=== PATIENT | female | born 1995 | race African-American/Black ===

== ENCOUNTER 2017-11-02 15:46 | Observation (INO) | payer SELFPAY ==
[~2017-11-02] VITALS: Ht 162.6 cm; Wt 60.8 kg
[~2017-11-02 15:46] MED LIST: ACET-1079 PO; PREN-96 PO
[2017-11-02 17:08] LABS: Basophils # (auto) 0 uL; Eosinophils # (auto) 0.2 uL; Monocytes # (auto) 0.6 uL; Platelet Count (auto) 264 10^3/uL (140-450)
[2017-11-02 17:10] LABS: Basophils % (auto) 0.4 % (0.0-2.0); Eosinophils % (auto) 3.1 % (0.0-7.0); Hematocrit 37.1 % (36.0-46.0); Hemoglobin 11.8 g/dL (12.2-16.2); Lymphocytes # (auto) 1.3 uL; Lymphocytes % (auto) 22.1 % (10.0-50.0); Mean Corpuscular Hemoglobin 24.1 pg (28.0-32.0); Mean Corpuscular Hgb Conc. 31.9 g/dL (32.0-36.0); Mean Corpuscular Volume 75.5 fL (80.0-100.0); Monocytes % (auto) 10.2 % (0.0-12.0); Neutrophils # (auto) 3.9 uL; Neutrophils % (auto) 64.2 % (37.0-80.0); Nucleated Red Blood Cells % 0.2 %; Red Blood Cells 4.91 10^6/uL (4.0-5.20); Red Cell Distribution Width 17.7 % (11.8-14.3); White Blood Cell 6.1 10^3/uL (4.4-10.8)
[2017-11-02 17:14] LABS: Urine Bacteria NONE SEEN /hpf (None Seen); Urine Blood 3+ /uL (Negative); Urine Mucus FEW (None Seen); Urine WBC 21 /hpf (0 - 5)
[2017-11-02 17:21] LABS: Albumin 3.5 g/dL (3.4-5.0); BUN/Creatinine Ratio 11.1; Calcium 8.1 mg/dL (8.5-10.1); Potassium 4.3 mmol/L (3.5-5.1)
[2017-11-02 17:23] LABS: Bilirubin, Total 0.5 mg/dL (0.2-1.0); Total Protein 8.5 g/dL (6.4-8.2)
[2017-11-02] MEDS ORDERED: HYDROcodone-ACET 10/325MG TAB PO ONE (18:45)
[2017-11-02 19:18] VITALS: BP 114/76
== END 2017-11-02 19:45 | disposition home or self-care (01) | DRG 605 ==
LOC: EDBD 15:46 → ER 15:46 → EDUNIT# 15:46 → OVERFLOW 15:47 → ER 19:44
PROVIDERS: ADMIT Emergency Medicine; ATTEND Emergency Medicine
DX: S31.114A Laceration without foreign body of abdominal wall, left lower quadrant without penetration into peritoneal cavity, initial encounter (principal); S71.111A Laceration without foreign body, right thigh, initial encounter; S81.811A Laceration without foreign body, right lower leg, initial encounter; V49.9XXA Car occupant (driver) (passenger) injured in unspecified traffic accident, initial encounter; Y92.410 Unspecified street and highway as the place of occurrence of the external cause; Y99.9 Unspecified external cause status; Y93.89 Activity, other specified
CPT/HCPCS: 36415; 74176; 80053; 81001; 81025; 84702; 85025; 99285; G0378

== ENCOUNTER → 2019-07-30 | Emergency (ER) | payer MEDICAID ==
[~2019-07-30] VITALS: Ht 165.1 cm; Wt 69.9 kg
[2019-07-30 14:03] VITALS: BP 113/68
== END | disposition home or self-care (01) ==
LOC: ER 13:00
DX: Z01.419 Encounter for gynecological examination (general) (routine) without abnormal findings (principal)

== ENCOUNTER 2021-02-11 12:25 | Emergency (ER) | payer MEDICAID ==
[~2021-02-11] VITALS: Ht 165.1 cm; Wt 74.4 kg
[2021-02-11 12:26] VITALS: BP 96/50
== END 2021-02-11 13:52 | disposition left against medical advice (07) ==
LOC: ER 12:25
DX: O21.8 Other vomiting complicating pregnancy (principal); R05.9 Cough, unspecified; Z3A.01 Less than 8 weeks gestation of pregnancy; Z53.21 Procedure and treatment not carried out due to patient leaving prior to being seen by health care provider

== ENCOUNTER 2023-11-13 11:41 | Inpatient (IN) | payer MEDICAID ==
[~2023-11-13] VITALS: Ht 165.1 cm; Wt 81.6 kg
[2023-11-13 12:30] LABS: Fern Testing Negative; Vaginal Trichomonas Not Present
[2023-11-13 12:31] LABS: Vaginal Bacteria Few; Vaginal Clue Cells None Seen; Vaginal Epithelial Cells Moderate
[2023-11-13] MEDS ORDERED: LIDOCAINE 2%HCL (LOCAL ANESTH.) INJ 20ML MDV IJ PRN (13:00)
[2023-11-13 13:41] LABS: Urine Bacteria None Seen /hpf (None Seen)
[2023-11-13 13:52] LABS: Basophils # (auto) 0 10 ^3/uL (0-0.2); Eosinophils # (auto) 0.1 10 ^3/uL (0-0.8); Lymphocytes # (auto) 1.4 10 ^3/uL (0.4-5.4); Red Cell Distribution Width 18.7 % (11.8-14.3)
[2023-11-13 13:54] LABS: Basophils % (auto) 0.3 % (0.0-2.0); Eosinophils % (auto) 0.8 % (0.0-7.0); Hematocrit 33.9 % (36.0-46.0); Lymphocytes % (auto) 16.9 % (10.0-50.0); Mean Corpuscular Hemoglobin 24.4 pg (28.0-32.0); Mean Corpuscular Hgb Conc. 32.5 g/dL (32.0-36.0); Monocytes # (auto) 0.5 10 ^3/uL (0-1.3); Monocytes % (auto) 6.4 % (0.0-12.0); Neutrophils # (auto) 6.2 10 ^3/uL (1.6-8.6); Neutrophils % (auto) 75.6 % (37.0-80.0); Nucleated Red Blood Cells % 0.1 %; Platelet Count (auto) 229 10^3/uL (140-450); Red Blood Cells 4.53 10^6/uL (4.0-5.20); White Blood Cell 8.2 10^3/uL (4.4-10.8)
[2023-11-13 14:08] LABS: INR 1.03 (0.9-1.15); Partial Thromboplastin Time 24.8 SEC (24.5-34.5); Prothrombin Time 10.9 sec (9.3-11.8)
[2023-11-13 14:12] LABS: Alanine Aminotransferase 13 U/L (7-40); Albumin 4.2 g/dL (3.2-4.8); Alkaline Phosphatase 139 U/L (46-116); Anion Gap 8 (5-15); Aspartate Aminotransferase 23 U/L (13-40); BUN/Creatinine Ratio 10.8 (10.0-20.0); Bilirubin, Total 0.6 mg/dL (0.2-1.0); Blood Urea Nitrogen 7 mg/dL (9-23); Calcium 9.6 mg/dL (8.7-10.4); Carbon Dioxide 22 mmol/L (20-31); Chloride 104 mmol/L (98-107); Glucose 82 mg/dL (74-106); Potassium 3.7 mmol/L (3.5-5.1); Sodium 134 mmol/L (136-145); Total Protein 7.7 g/dL (5.7-8.2)
[2023-11-13] MEDS ORDERED: SODIUM CHLORIDE 0.9% 300 ML IUPC ONE (14:15)
[2023-11-13 14:21] LABS: Urine Blood Negative /uL (Negative); Urine Clarity Turbid (Clear); Urine Color Yellow (Yellow); Urine Mucus FEW (None Seen); Urine Protein, UAD TRACE (Negative); Urine Urobilinogen 4 mg/dL (Negative); Urine WBC 13 /hpf (0 - 5); Urine pH 7.5 (5.0-9.0)
[2023-11-13] MEDS: ePHEDrine SULFATE 50 MG/ML AMP IV ONE (15:20)
[2023-11-13 16:09] LABS: Amphetamine Screen, Urine Neg (NEGATIVE)
[2023-11-13 16:10] LABS: Barbiturate Scree,Urine Neg (NEGATIVE); Benzodiazephine Screen, Urine Neg (NEGATIVE); Cannabinoid Screen, Urine Neg (NEGATIVE); Cocaine Screen, Urine Neg (NEGATIVE); Opiate Scree,Urine Neg (NEGATIVE)
[2023-11-13 16:55] LABS: Phencyclidine Screen, Urine Neg (NEGATIVE)
[2023-11-13] MEDS: LACTATED RINGER'S 1,000 ML IV SCH (17:05)
[2023-11-13] MEDS: PHISODERM TOP SOLN 240ML BTL TOP PRN (17:06)
[2023-11-13] MEDS: SODIUM CHLORIDE 0.9% 1,000 ML IUPC SCH (17:06)
[2023-11-13] MEDS: WITCH HAZEL-GLYCERIN PAD TOP PRN (17:07)
[2023-11-13] MEDS: DERMOPLAST 60ML BOTTLE TOP PRN (17:07)
[2023-11-13] MEDS: ROPIVACAINE HCL 200 ML ONE (17:08)
[2023-11-13] MEDS: ceFAZolin 2 GM/D5W50ml 50 ML IV ONE (17:09)
[2023-11-13] MEDS ORDERED: ONDANSETRON HCL 4 MG/2 ML VIAL IV PRN (19:30)
[2023-11-13] MEDS ORDERED: AMMONIA 0.33 ML INHALANT IN ONE (19:35)
[2023-11-13] MEDS ORDERED: ONDANSETRON HCL 4 MG/2 ML VIAL ONE (19:36)
[2023-11-13] MEDS ORDERED: METHYLERGONOVINE MALEATE 0.2 MG/ML AMP IM PRN (20:00)
[2023-11-13] MEDS ORDERED: IBUPROFEN 600 MG TAB PO PRN (20:30)
[2023-11-13] MEDS ORDERED: ceFAZolin 1GM/50ML 50 ML IV SCH (22:00)
[2023-11-13] MEDS ORDERED: ONDANSETRON ODT 4 MG TAB PO PRN (23:45)
[2023-11-13] MEDS ORDERED: ACETAMINOPHEN 325 MG TAB PO PRN (23:45)
[2023-11-14] MEDS ORDERED: IBUPROFEN 800 MG TAB PO SCH
[2023-11-14] MEDS: LACT. RINGERS/OXYTOCIN 20UNITS 500 ML IV ONE ×2 (00:34→00:35)
[2023-11-14] MEDS: METHYLERGONOVINE MALEATE 0.2 MG/ML AMP IM ONE (00:39)
[2023-11-14] MEDS: TRANEXAMIC ACID 1,000 MG in SODIUM CHL 0.9% 100 ML IV ONE (00:40)
[2023-11-14 03:00] VITALS: BP 91/57; PULSE 92; RESP 16; TEMP 98.7; O2SAT 100
[2023-11-14] MEDS: DOCUSATE SOD 100 MG CAP PO SCH (03:27)
[2023-11-14] MEDS: IBUPROFEN 800 MG TAB PO PRN (03:29)
[2023-11-14 07:00] VITALS: BP 116/77; PULSE 75; RESP 18; TEMP 98.1; O2SAT 98
[2023-11-14] MEDS: ACETAMINOPHEN 325 MG TAB PO PRN (07:36)
[2023-11-14 07:41] LABS: Basophils # (auto) 0 10 ^3/uL (0-0.2); Basophils % (auto) 0.2 % (0.0-2.0); Eosinophils # (auto) 0 10 ^3/uL (0-0.8); Eosinophils % (auto) 0.2 % (0.0-7.0); Hematocrit 28.8 % (36.0-46.0); Hemoglobin 9.3 g/dL (12.2-16.2); Lymphocytes # (auto) 1.2 10 ^3/uL (0.4-5.4); Lymphocytes % (auto) 7.3 % (10.0-50.0); Mean Corpuscular Hemoglobin 24.4 pg (28.0-32.0); Mean Corpuscular Hgb Conc. 32.2 g/dL (32.0-36.0); Mean Corpuscular Volume 75.8 fL (80.0-100.0); Monocytes # (auto) 1.3 10 ^3/uL (0-1.3); Monocytes % (auto) 7.6 % (0.0-12.0); Neutrophils # (auto) 14.2 10 ^3/uL (1.6-8.6); Neutrophils % (auto) 84.7 % (37.0-80.0); Nucleated Red Blood Cells % 0.1 %; Platelet Count (auto) 200 10^3/uL (140-450); Red Blood Cells 3.79 10^6/uL (4.0-5.20); Red Cell Distribution Width 18.8 % (11.8-14.3); White Blood Cell 16.7 10^3/uL (4.4-10.8)
[2023-11-14 08:06] LABS: RPR Non Reactive (Non Reactive)
[2023-11-14] MEDS ORDERED: PRENATAL VITAMIN TAB PO SCH (10:00)
[2023-11-14 11:00] VITALS: BP 107/62; PULSE 81; RESP 18; TEMP 97.7; O2SAT 98
[2023-11-14 15:00] VITALS: BP 105/64; PULSE 75; RESP 18; TEMP 97.5; O2SAT 98
[2023-11-14] MEDS ORDERED: PREN-96 PO (17:48)
[2023-11-14 19:00] VITALS: BP 102/57; PULSE 75; RESP 20; TEMP 97.7; O2SAT 100
[2023-11-14] MEDS ORDERED: LACTATED RINGER'S 1,000 ML IV SCH (19:45)
[2023-11-14] MEDS ORDERED: PHISODERM TOP SOLN 240ML BTL TOP PRN (19:45)
[2023-11-14] MEDS ORDERED: WITCH HAZEL-GLYCERIN PAD TOP PRN (19:45)
[2023-11-14] MEDS ORDERED: DERMOPLAST 60ML BOTTLE TOP PRN (19:45)
[2023-11-14] MEDS ORDERED: BUTORPHANOL TARTRATE 2 MG/1 ML VIAL IV PRN ×2 (19:45)
[2023-11-14] MEDS ORDERED: LIDOCAINE 2%HCL (LOCAL ANESTH.) INJ 20ML MDV IJ PRN (19:45)
[2023-11-14] MEDS ORDERED: HYDROcodone-ACET 10/325MG TAB PO PRN (20:15)
[2023-11-14] MEDS ORDERED: HYDROcodone-ACET 5/325MG TAB PO PRN (20:15)
[2023-11-14] MEDS ORDERED: DOCU-265 PO (21:38)
[2023-11-14] MEDS ORDERED: FER325T PO (21:38)
[2023-11-14] MEDS ORDERED: ASCO-56 PO (21:38)
[2023-11-14] MEDS ORDERED: IBUP-1454 PO (21:38)
[2023-11-14] MEDS ORDERED: DOCUSATE SOD 100 MG CAP PO SCH (22:00)
[2023-11-14 23:00] VITALS: BP 105/58; PULSE 70; RESP 18; TEMP 97.8; O2SAT 100
[2023-11-15 03:10] VITALS: BP 106/50; PULSE 77; RESP 16; TEMP 97.6; O2SAT 100
[2023-11-15 07:00] VITALS: BP 123/59; PULSE 61; RESP 20; TEMP 97.7; O2SAT 100
[2023-11-15 11:16] VITALS: BP 108/56; PULSE 72; RESP 17; TEMP 98.1; O2SAT 98
[2023-11-15 15:00] VITALS: BP 114/67; PULSE 65; RESP 16; TEMP 97.6; O2SAT 100
[2023-11-15] MEDS: TETANUS-DIPTH-ACEL PERTUSSIS 0.5ML SYR Tdap IM ONE (18:39)
[2023-11-15] MEDS: MEASLES, MUMPS & RUBELLA VAC(MMRII) 0.5ML SC ONE (18:43)
[2023-11-15 19:35] VITALS: PULSE 98; RESP 16; TEMP 98.5; O2SAT 99
[2023-11-15 20:06] LABS: Chlamydia Trachomatis, NAA Negative (Negative); Neisseria gonorrhoeae, NAA Negative (Negative)
== END 2023-11-15 19:35 | disposition home or self-care (01) | DRG 560 ==
LOC: LDRP 11:41 → UNDOADMOB 11:41 → LDRP 12:02 → OBSVTOIN 12:51 → LDRP 12:52
PROVIDERS: ADMIT Obstetrics & Gynecology; ATTEND Obstetrics & Gynecology
PROC: 10E0XZZ Delivery of Products of Conception, External Approach (ICD-10-PCS; principal; 2023-11-13)
PROC: 0W8NXZZ Division of Female Perineum, External Approach (ICD-10-PCS; 2023-11-13)
PROC: 3E0R3BZ Introduction of Anesthetic Agent into Spinal Canal, Percutaneous Approach (ICD-10-PCS; 2023-11-13)
PROC: 00HU33Z Insertion of Infusion Device into Spinal Canal, Percutaneous Approach (ICD-10-PCS; 2023-11-13)
DX: O77.0 Labor and delivery complicated by meconium in amniotic fluid (principal); Z37.0 Single live birth; R71.0 Precipitous drop in hematocrit; O69.81X0 Labor and delivery complicated by cord around neck, without compression, not applicable or unspecified; Z3A.39 39 weeks gestation of pregnancy
CPT/HCPCS: 36415; 59025; 59409; 62282; 80053; 80307; 81001; 81002; 85025; 85610; 85730; 86592; 86803; 86850; 86900; 86901; 87210; 94760; 94762; 96360; 96361; 96372; 96374; 96375; G0378; J2405; J2590